=== PATIENT | female | born 1965 | race African-American/Black ===

== ENCOUNTER → 2016-09-25 | Outpatient (CLI) | payer BC | END | disposition home or self-care (01) | LOC: CFH 07:25 | PROVIDERS: ATTEND Nurse Practitioner Family | DX: Z12.31 Encounter for screening mammogram for malignant neoplasm of breast (principal); D37.6 Neoplasm of uncertain behavior of liver, gallbladder and bile ducts; Z90.49 Acquired absence of other specified parts of digestive tract | CPT/HCPCS: 76700; 77063; G0202 ==